=== PATIENT | male | born 1990 | race Two or more races ===

== ENCOUNTER 2018-12-04 00:20 | Emergency (ER) | payer SELFPAY ==
[~2018-12-04] VITALS: Ht 180.3 cm; Wt 113.6 kg
[2018-12-04] MEDS ORDERED: SODIUM CHLORIDE 0.9% 1,000 ML IV ONE (00:45)
[2018-12-04 00:50] LABS: GLUCOSE,POINT OF CARE 149 MG/DL (70-110)
[2018-12-04 03:12] VITALS: BP 110/80
== END 2018-12-04 03:36 | disposition home or self-care (01) ==
LOC: EMS 00:22
DX: F10.129 Alcohol abuse with intoxication, unspecified (principal); Y90.8 Blood alcohol level of 240 mg/100 ml or more
CPT/HCPCS: 36415; 70450; 82962; 99284; G0480; J7030